=== PATIENT | male | born 1955 | race Caucasian/White ===

== ENCOUNTER 2018-06-21 14:52 | Emergency (ER) | payer MEDICARE, MEDICAID ==
[~2018-06-21] VITALS: Ht 185.4 cm; Wt 122.0 kg
[2018-06-21 16:11] LABS: BASOPHILS # (AUTO) 0.1 X10'3 (0-0.2); BASOPHILS % (AUTO) 0.8 % (0-1); EOSINOPHILS # (AUTO) 0.1 X10'3 (0-0.9); HEMATOCRIT 39.5 % (42.0-52.0); HEMOGLOBIN 12.6 g/dl (14.0-17.9); LYMPHOCYTES % (AUTO) 14.5 % (21-51); MEAN CORPUSCULAR HEMOGLOBIN 26.8 PG (27.0-31.0); MEAN CORPUSCULAR HGB CONC 31.9 g/dL (33.0-36.5); MEAN CORPUSCULAR VOLUME 83.9 FL (78-98); MEAN PLATELET VOLUME 7.4 FL (7.4-10.4); MONOCYTES # (AUTO) 0.6 X10'3 (0-0.9); MONOCYTES % (AUTO) 8.4 % (2-12); NEUTROPHILS # (AUTO) 5.1 X10'3 (1.8-7.7); NEUTROPHILS % (AUTO) 74.3 % (42-75); PLATELET COUNT 208 X10'3 (140-440); RED BLOOD COUNT 4.71 X10'6 (4.70-6.10); RED CELL DISTRIBUTION WIDTH 16.3 % (11.5-14.5); WHITE BLOOD COUNT 6.9 X10'3 (4.5-11.0)
[2018-06-21 16:25] LABS: ALANINE AMINOTRANSFERASE 35 U/L (12-78); ALBUMIN 2.9 G/DL (3.4-5.0); ALBUMIN/GLOBULIN RATIO 0.9 (1.1-1.5); ALKALINE PHOSPHATASE 89 IU/L (46-116); ANION GAP 3 (8-16); ASPARTATE AMINO TRANSFERASE 32 U/L (10-37); BILIRUBIN,TOTAL 0.3 MG/DL (0.1-1.0); BLOOD UREA NITROGEN 14 MG/DL (7-18); BUN/CREATININE RATIO 15.2 (5.4-32.0); CALCIUM 8.9 MG/DL (8.5-10.1); CHLORIDE 104 MMOL/L (99-107); CREATININE 0.92 MG/DL (0.60-1.10); GLUCOSE 200 MG/DL (70-104); POTASSIUM 3.8 MMOL/L (3.5-5.1); SODIUM 144 MMOL/L (135-145); TOTAL CARBON DIOXIDE 37.2 MMOL/L (24-32); TOTAL PROTEIN 6.3 G/DL (6.4-8.2); eGFR 83 ML/MIN
[2018-06-21 16:38] LABS: PARTIAL THROMBOPLASTIN TIME 23 SECONDS (22-32)
[2018-06-21] MEDS ORDERED: morphine 10mg/ml inj. IV ONE (17:25)
[2018-06-21 17:57] LABS: CLARITY,URINE CLEAR (Clear); COLOR,URINE YELLOW (Yellow); GLUCOSE, URINE NEGATIVE (Neg); KETONES,URINE NEGATIVE (Neg); LEUKOCYTE ESTERASE ,URINE NEGATIVE (Neg); NITRITES, URINE NEGATIVE (Neg); OCCULT BLOOD,URINE NEGATIVE (Neg); PH,URINE 5.5 (4.8-8.0); PROTEIN,URINE NEGATIVE (Neg); UROBILINOGEN,URINE 0.2 E.U/dL (0.2-1.0)
[2018-06-21 17:58] LABS: UA COLLECTION TYPE CLN CATCH MIDSTREAM
[2018-06-21] MEDS ORDERED: OXYC-145 PO (18:16)
[2018-06-21 18:48] VITALS: BP 157/96
== END 2018-06-21 18:51 | disposition home or self-care (01) ==
LOC: ER 14:53
DX: G89.29 Other chronic pain (principal); M54.5 Low back pain
CPT/HCPCS: 36415; 71045; 80053; 81003; 83605; 84145; 85025; 85610; 85730; 87040; 93005; 96374; 99284; J2270

== ENCOUNTER 2023-01-07 17:45 | Inpatient (IN) | payer MEDICARE, MEDICAID ==
[~2023-01-07] VITALS: Ht 185.4 cm; Wt 122.9 kg
[~2023-01-07 17:45] MED LIST: OXYC-145 PO
[2023-01-07 18:43] LABS: BASOPHILS # (AUTO) 0.1 X10'3 (0-0.2); BASOPHILS % (AUTO) 1.6 % (0-1); EOSINOPHILS # (AUTO) 0.1 X10'3 (0-0.9); EOSINOPHILS % (AUTO) 1.9 % (0-6); HEMATOCRIT 29.9 % (42.0-52.0); HEMOGLOBIN 8.4 g/dl (14.0-17.9); LYMPHOCYTES # (AUTO) 0.9 X10'3 (1.1-4.8); LYMPHOCYTES % (AUTO) 12.4 % (21-51); MEAN CORPUSCULAR HEMOGLOBIN 20.3 PG (27.0-31.0); MEAN CORPUSCULAR HGB CONC 28.1 g/dL (33.0-36.5); MEAN CORPUSCULAR VOLUME 72.1 FL (78-98); MEAN PLATELET VOLUME 8.7 FL (7.4-10.4); MONOCYTES # (AUTO) 0.8 X10'3 (0-0.9); MONOCYTES % (AUTO) 11.3 % (2-12); NEUTROPHILS # (AUTO) 5.1 X10'3 (1.8-7.7); NEUTROPHILS % (AUTO) 72.8 % (42-75); PLATELET COUNT 163 X10'3 (140-440); RED BLOOD COUNT 4.14 X10'6 (4.70-6.10); RED CELL DISTRIBUTION WIDTH 21.1 % (11.5-14.5)
[2023-01-07 19:10] LABS: ALANINE AMINOTRANSFERASE 20 U/L (12-78); ALBUMIN 3.1 G/DL (3.4-5.0); ALKALINE PHOSPHATASE 170 IU/L (46-116); ASPARTATE AMINO TRANSFERASE 31 U/L (10-37); BILIRUBIN,TOTAL 1.1 MG/DL (0.1-1.0); BLOOD UREA NITROGEN 18 MG/DL (7-18); BUN/CREATININE RATIO 15.1 (10.0-20.0); CALCIUM 8.8 MG/DL (8.5-10.1); CHLORIDE 99 MMOL/L (99-107); CREATININE 1.19 MG/DL (0.60-1.10); GLUCOSE 112 MG/DL (70-104); POTASSIUM 3.4 MMOL/L (3.5-5.1); SODIUM 145 MMOL/L (135-145); TOTAL PROTEIN 6.2 G/DL (6.4-8.2); eCRCL 69 ML/MIN; eGFR 61 ML/MIN
[2023-01-07 19:19] LABS: PRO BRAIN NATRIURETIC PEPTIDE 4140 PG/ML (0-125)
[2023-01-07 19:29] LABS: ANION GAP -4 (8-16)
[2023-01-07 19:31] LABS: TOTAL CARBON DIOXIDE > 50 MMOL/L (24-32)
--- NOTE | 2023-01-07 19:37 | NUR ---
US AT BEDSIDE
[2023-01-07] MEDS ORDERED: furosemide 10 MG/1 ML 10ml inj IV ONE (20:00)
[2023-01-07 20:20] LABS: ABG BASE EXCESS 14.2 mmol/L (-2.0-2.0); ABG OXYGEN SATURATION 95.2 % (94-97); ABG PCO2 (T) 74.7 mmHg (35.0-48.0); ABG PH (T) 7.366 (7.340-7.440); ABG PO2 (T) 80.4 mmHg (75.0-100.0); FCOHb 1.2 % (0.0-3.9); FHHb 4.7 % (0.0-5.0); FLOW 5 L/min; FMetHb 0.2 % (0.0-1.5); FO2Hb 93.9 % (94-97); MODE NASAL CANNULA; PATIENT TEMPERATURE 36.7; TOTAL HEMOGLOBIN 9.4 G/dl (14.0-17.9)
[2023-01-07] MEDS ORDERED: nitroGLYCERIN 25mg/250mL D5W 250 ML IV SCH (20:30)
[2023-01-07] MEDS ORDERED: nitroGLYCERIN-Tridil 50MG/D5W 250 ML IV SCH (20:35)
[2023-01-07 20:39] VITALS: PULSE 84; RESP 19; O2SAT 99
[2023-01-07] MEDS ORDERED: temazepam 15mg capsule PO PRN (21:00)
[2023-01-07 22:02] LABS: ABG BASE EXCESS 16.9 mmol/L (-2.0-2.0); ABG HCO3 44.6 mmol/L (22.0-26.0); ABG OXYGEN SATURATION 98.1 % (94-97); ABG PCO2 (T) 76.5 mmHg (35.0-48.0); ABG PH (T) 7.382 (7.340-7.440); ABG PO2 (T) 108.4 mmHg (75.0-100.0); FCOHb 0.9 % (0.0-3.9); FHHb 1.9 % (0.0-5.0); FMetHb 0.3 % (0.0-1.5); FO2Hb 96.9 % (94-97); PATIENT TEMPERATURE 36.7; TOTAL HEMOGLOBIN 9.2 G/dl (14.0-17.9)
[2023-01-07 23:05] LABS: ABG BASE EXCESS 14.7 mmol/L (-2.0-2.0); ABG HCO3 42.3 mmol/L (22.0-26.0); ABG PCO2 (T) 72.8 mmHg (35.0-48.0); ABG PO2 (T) 64.9 mmHg (75.0-100.0); ALLEN'S TEST Modified; FCOHb 0.9 % (0.0-3.9); FHHb 7.9 % (0.0-5.0); FMetHb 0.4 % (0.0-1.5); FO2Hb 90.8 % (94-97); PATIENT TEMPERATURE 36.6; RESPIRATORY RATE 20 b/min; TOTAL HEMOGLOBIN 9.2 G/dl (14.0-17.9)
[2023-01-07 23:09] VITALS: PULSE 85; RESP 22; O2SAT 91
[2023-01-07] MEDS ORDERED: ondansetron 4mg rapidly disintigrating tab PO PRN (23:20)
[2023-01-07] MEDS ORDERED: magnesium hydroxide 30ml (MOM) UD suspension PO PRN (23:20)
[2023-01-07] MEDS ORDERED: ipratropium/albuterol 3ml nebule NEB PRN (23:20)
[2023-01-07] MEDS ORDERED: acetaminophen 325mg tablet PO PRN ×2 (23:20)
[2023-01-07] MEDS ORDERED: HYDROcodone/acetaminophen 10/325mg tab PO PRN (23:20)
[2023-01-07] MEDS ORDERED: potassium Cl 20 mEq SR tablet PO PRN (23:20)
[2023-01-07] MEDS ORDERED: HYDROcodone/acetaminophen 5mg/325mg tablet PO PRN (23:20)
[2023-01-07] MEDS ORDERED: acetaminophen 650mg rectal suppository RC PRN (23:20)
[2023-01-07] MEDS ORDERED: morphine 2 MG/ML inj. syringe IV PRN (23:20)
[2023-01-07] MEDS ORDERED: diphenhydrAMINE 25mg capsule PO PRN (23:20)
[2023-01-07] MEDS ORDERED: ondansetron/PF 4mg/2ml inj IV PRN (23:20)
[2023-01-07] MEDS ORDERED: mag hydrox/Alum hydrox/simeth 30ml oral suspension PO PRN (23:20)
[2023-01-07] MEDS ORDERED: diphenhydrAMINE 50 mg/ml inj IV PRN (23:20)
[2023-01-07] MEDS ORDERED: potassium Cl 40MEQ/1/2NS 520ml 520 ML IV PRN (23:20)
[2023-01-07] MEDS ORDERED: bisacodyl 10mg suppository rectal RC PRN (23:20)
[2023-01-07 23:54] LABS: CREATINE KINASE 73 U/L (39-308); LIPASE 39 U/L (16-77); MAGNESIUM 1.7 MG/DL (1.5-2.4); PHOSPHORUS 3.5 MG/DL (2.3-4.5)
[2023-01-08] VITALS (7 sets, daily range): PULSE 85–106; RESP 15–22; O2SAT 91–100
[2023-01-08 00:04] LABS: OSMOLALITY 304 MOSM/K (280-300)
[2023-01-08] MEDS: heparin, porcine 5000 units/ml vial SQ SCH ×3 (00:11→16:46)
[2023-01-08 00:20] LABS: APTT 24 SECONDS (22-32); D-DIMER 0.43 MG/L FEU (0-0.50); INR 1.1 INR; PROTHROMBIN TIME 11.8 SECONDS (9.0-12.0)
[2023-01-08 00:38] LABS: BILIRUBIN,URINE NEGATIVE (Neg); CLARITY,URINE CLEAR (Clear); COLOR,URINE STRAW (Yellow); GLUCOSE, URINE NEGATIVE (Neg); KETONES,URINE NEGATIVE (Neg); LEUKOCYTE ESTERASE ,URINE NEGATIVE (Neg); NITRITES, URINE NEGATIVE (Neg); OCCULT BLOOD,URINE TRACE-INTACT (Neg); PH,URINE 6.5 (4.8-8.0); PROTEIN,URINE NEGATIVE (Neg)
[2023-01-08 00:45] LABS: UA COLLECTION TYPE FOLEY CATH
[2023-01-08 00:46] LABS: BACTERIA,URINE FEW /HPF (Neg); HYALINE CASTS 0-3 /LPF (NEGATIVE); MUCUS STRANDS FEW /LPF (Neg); RBC,URINE 0-2 /HPF (0-2); SQUAMOUS EPITHELIAL CELL,UR NONE SEEN /LPF (FEW); WBC,URINE 0-4 /HPF (0-4)
[2023-01-08 01:12] LABS: URINE AMPHETAMINE SCREEN POSITIVE (Neg); URINE BARBITUATE SCREEN NEGATIVE (Neg); URINE BENZODIAZEPINES SCREEN NEGATIVE (Neg); URINE CANNABINOID SCREEN NEGATIVE (Neg); URINE COCAINE SCREEN NEGATIVE (Neg); URINE METHADONE SCREEN NEGATIVE (Neg); URINE OPIATE SCREEN NEGATIVE (Neg); URINE PHENCYCLIDINE SCREEN NEGATIVE (Neg)
[2023-01-08 03:48] LABS: BASOPHILS # (AUTO) 0.1 X10'3 (0-0.2); BASOPHILS % (AUTO) 1.2 % (0-1); EOSINOPHILS # (AUTO) 0.2 X10'3 (0-0.9); EOSINOPHILS % (AUTO) 2.2 % (0-6); HEMATOCRIT 27.8 % (42.0-52.0); HEMOGLOBIN 7.9 g/dl (14.0-17.9); LYMPHOCYTES # (AUTO) 1.2 X10'3 (1.1-4.8); LYMPHOCYTES % (AUTO) 17.6 % (21-51); MEAN CORPUSCULAR HEMOGLOBIN 20.4 PG (27.0-31.0); MEAN CORPUSCULAR HGB CONC 28.4 g/dL (33.0-36.5); MEAN PLATELET VOLUME 9.2 FL (7.4-10.4); MONOCYTES # (AUTO) 0.8 X10'3 (0-0.9); MONOCYTES % (AUTO) 11.7 % (2-12); NEUTROPHILS # (AUTO) 4.7 X10'3 (1.8-7.7); NEUTROPHILS % (AUTO) 67.3 % (42-75); PLATELET COUNT 147 X10'3 (140-440); RED BLOOD COUNT 3.86 X10'6 (4.70-6.10); RED CELL DISTRIBUTION WIDTH 21.8 % (11.5-14.5); WHITE BLOOD COUNT 6.9 X10'3 (4.5-11.0)
[2023-01-08 04:04] LABS: ALANINE AMINOTRANSFERASE 17 U/L (12-78); ALBUMIN 2.9 G/DL (3.4-5.0); ALBUMIN/GLOBULIN RATIO 1.1 (1.1-1.5); ALKALINE PHOSPHATASE 155 IU/L (46-116); ASPARTATE AMINO TRANSFERASE 30 U/L (10-37); BILIRUBIN,TOTAL 1.1 MG/DL (0.1-1.0); BLOOD UREA NITROGEN 19 MG/DL (7-18); BUN/CREATININE RATIO 17.8 (10.0-20.0); CALCIUM 8.6 MG/DL (8.5-10.1); CHLORIDE 98 MMOL/L (99-107); CHOL/HDL RATIO 2.5 (0.00-4.99); CHOLESTEROL 133 MG/DL (0-200); CREATININE 1.07 MG/DL (0.60-1.10); GLUCOSE 75 MG/DL (70-104); HDL CHOLESTEROL 53 MG/DL (35-60); LDL CHOLESTEROL 72 MG/DL (50-100); MAGNESIUM 1.7 MG/DL (1.5-2.4); SODIUM 145 MMOL/L (135-145); THYROID STIMULATING HORMONE 1.44 ulU/ml (0.34-4.50); TOTAL PROTEIN 5.6 G/DL (6.4-8.2); TRIGLYCERIDES 62 MG/DL (20-135); eCRCL 77 ML/MIN; eGFR 69 ML/MIN
[2023-01-08 04:15] LABS: POTASSIUM 2.7 MMOL/L (3.5-5.1)
[2023-01-08 04:20] LABS: ANION GAP 0 (8-16); TOTAL CARBON DIOXIDE 47.3 MMOL/L (24-32)
--- NOTE | 2023-01-08 04:20 | NUR ---
requested 40meq K in 520mL bag from pharmacy, will hang when recieved.
[2023-01-08] MEDS ORDERED: AMI200T PO (04:59)
[2023-01-08] MEDS ORDERED: METO-411 PO (04:59)
[2023-01-08] MEDS ORDERED: FURO40TA4 PO (04:59)
[2023-01-08] MEDS ORDERED: ALBU17AE26 IH (04:59)
--- NOTE | 2023-01-08 04:59 | NUR ---
potassium and nitro compatible y-site confirmed with pharmacist. awaiting potassium still, pharmacist making it
[2023-01-08] MEDS: furosemide 20 MG/2 ML vial IV SCH ×2 (08:00→21:40)
[2023-01-08] MEDS ORDERED: docusate sod 100mg capsule PO SCH (08:00)
[2023-01-08 08:18] LABS: PRO BRAIN NATRIURETIC PEPTIDE 3242 PG/ML (0-125)
[2023-01-08] MEDS: pantoprazole 40mg Tablet.DR PO SCH (09:50)
[2023-01-08] MEDS: lisinopril 10 MG tablet PO SCH (09:50)
[2023-01-08] MEDS: atorvastatin 20mg tablet PO SCH (09:50)
[2023-01-08] MEDS: spironolactone 25 MG tablet PO SCH (09:53)
--- NOTE | 2023-01-08 15:46 | NUR ---
notified of increased HR. PT HR [phone]
[2023-01-08] MEDS ORDERED: diltiazem-NS 100mg/100ml 100 ML IV SCH (15:55)
[2023-01-08] MEDS ORDERED: LORazepam 2 mg/ml vial IV PRN (18:00)
[2023-01-08] MEDS ORDERED: LORazepam 1 MG tablet PO PRN (18:00)
[2023-01-08] MEDS ORDERED: haloperidol 5mg tablet PO PRN (18:00)
[2023-01-08] MEDS: potassium Cl 20 mEq SR tablet PO PRN (23:24)
[2023-01-09] MEDS: heparin, porcine 5000 units/ml vial SQ SCH (00:37)
--- NOTE | 2023-01-09 00:59 | NUR ---
I agree with MATERIAL CLERK general assessment
[2023-01-09 02:41] LABS: BASOPHILS # (AUTO) 0.1 X10'3 (0-0.2); EOSINOPHILS # (AUTO) 0.2 X10'3 (0-0.9); EOSINOPHILS % (AUTO) 2.3 % (0-6); HEMATOCRIT 26.9 % (42.0-52.0); LYMPHOCYTES # (AUTO) 0.9 X10'3 (1.1-4.8); LYMPHOCYTES % (AUTO) 11.6 % (21-51); MEAN PLATELET VOLUME 8.6 FL (7.4-10.4); MONOCYTES # (AUTO) 0.8 X10'3 (0-0.9); MONOCYTES % (AUTO) 10.8 % (2-12); NEUTROPHILS # (AUTO) 5.8 X10'3 (1.8-7.7); NEUTROPHILS % (AUTO) 74.3 % (42-75); PLATELET COUNT 164 X10'3 (140-440); WHITE BLOOD COUNT 7.8 X10'3 (4.5-11.0)
[2023-01-09 02:46] VITALS: PULSE 114; RESP 18; O2SAT 95
[2023-01-09 02:48] LABS: INR 1.1 INR; PROTHROMBIN TIME 11.9 SECONDS (9.0-12.0)
[2023-01-09 02:53] LABS: ALANINE AMINOTRANSFERASE 18 U/L (12-78); ALBUMIN 2.8 G/DL (3.4-5.0); ALKALINE PHOSPHATASE 150 IU/L (46-116); ASPARTATE AMINO TRANSFERASE 28 U/L (10-37); BILIRUBIN,TOTAL 1.1 MG/DL (0.1-1.0); BLOOD UREA NITROGEN 24 MG/DL (7-18); BUN/CREATININE RATIO 23.1 (10.0-20.0); CALCIUM 8.4 MG/DL (8.5-10.1); CHLORIDE 97 MMOL/L (99-107); CREATININE 1.04 MG/DL (0.60-1.10); GLUCOSE 129 MG/DL (70-104); MAGNESIUM 1.6 MG/DL (1.5-2.4); PHOSPHORUS 3.6 MG/DL (2.3-4.5); POTASSIUM 3.3 MMOL/L (3.5-5.1); SODIUM 144 MMOL/L (135-145); TOTAL PROTEIN 5.7 G/DL (6.4-8.2); eCRCL 79 ML/MIN; eGFR 71 ML/MIN
[2023-01-09 03:03] LABS: MEAN CORPUSCULAR HEMOGLOBIN 20.8 PG (27.0-31.0); MEAN CORPUSCULAR VOLUME 69.9 FL (78-98); RED BLOOD COUNT 3.84 X10'6 (4.70-6.10)
[2023-01-09 03:04] LABS: MEAN CORPUSCULAR HGB CONC 29.7 g/dL (33.0-36.5); RED CELL DISTRIBUTION WIDTH 20.7 % (11.5-14.5)
[2023-01-09 03:07] LABS: ANION GAP 0 (8-16)
[2023-01-09 03:11] LABS: TOTAL CARBON DIOXIDE 47.3 MMOL/L (24-32)
[2023-01-09] MEDS: potassium Cl 20 mEq SR tablet PO PRN (03:53)
--- NOTE | 2023-01-09 03:58 | NUR ---
AWARE OF CO2 NO NEW ORDERS
--- NOTE | 2023-01-09 06:37 | NUR ---
pt refused to turn and reposition this shift. offered to turn and reposition every 2 hours and as needed. pt educated and cont to refuse.
--- NOTE | 2023-01-09 06:41 | NUR ---
RECEIVED REPORT FROM GUILLERMINA KENNEDY ASSUMING CARE OF PT RESTING QUIETLY RESPS EVEN AND UNLABORED MONITOR LEADS ON AND FUNCTIONING
[2023-01-09] MEDS ORDERED: metoprolol tartrate 1mg/ml inj IV ONE (08:25)
[2023-01-09] MEDS: lisinopril 10 MG tablet PO SCH (09:19)
[2023-01-09] MEDS: pantoprazole 40mg Tablet.DR PO SCH (09:20)
[2023-01-09] MEDS: spironolactone 25 MG tablet PO SCH (09:20)
[2023-01-09] MEDS: atorvastatin 20mg tablet PO SCH (09:20)
[2023-01-09 09:24] VITALS: PULSE 111; RESP 22; O2SAT 100
--- NOTE | 2023-01-09 09:27 | NUR ---
floating [id number] oral meds given
[2023-01-09] MEDS: furosemide 20 MG/2 ML vial IV SCH ×2 (09:55→20:42)
--- NOTE | 2023-01-09 11:32 | NUR ---
dr Morse notified of pt's hr upper 90's to low 100's dilt gtt on hold until new orders intered
[2023-01-09] MEDS ORDERED: pneumococcal 23-VAL P-sac vacc 25 mcg/0.5ml vial IMVAC ONE (11:35)
--- NOTE | 2023-01-09 12:01 | NUR ---
CLARIFICATION ON DILT GTT DC PER DR VIGIL PT STARTING ON PO MEDS
[2023-01-09 12:36] VITALS: PULSE 122; RESP 20; O2SAT 95
[2023-01-09] MEDS: diltiazem 30mg tablet PO SCH ×2 (14:46→20:43)
--- NOTE | 2023-01-09 17:47 | NUR ---
attempted to give report to [facility] noc charge tay rn refused report " that pt is not going to a day shift nurse you will have to call back after change of shift" primer charger notified
--- NOTE | 2023-01-09 19:30 | NUR ---
Pt is A+Ox4, arrived on the unit at 1920 on a hospital bed from the ED. Pt has NC in place at 6L saturation of 100%. Pt has a 20G in the RAC that is SL. Temp rios in place and patent draining to gravity. BSC in room so pt can transfer from bed to commode. Pt diet is HH with a 2gm Na restriction. Pt is pleasant and denies any pain/discomfort.
[2023-01-09 19:55] VITALS: BP 139/73; PULSE 128; RESP 28; TEMP 98.8; O2SAT 100
[2023-01-09] MEDS ORDERED: metoprolol tartrate 25mg tablet PO SCH (20:00)
[2023-01-09 20:12] VITALS: PULSE 113; RESP 16; O2SAT 96
[2023-01-09] MEDS: apixaban 5mg tablet PO SCH (20:43)
[2023-01-09 22:00] VITALS: BP 105/56; PULSE 108; RESP 27; TEMP 98.1; O2SAT 98
[2023-01-10] VITALS (11 sets, daily range): BP systolic 95–131; BP diastolic 47–68; PULSE 67–135; RESP 18–30; TEMP 97.8–99.3; O2SAT 88–100
[2023-01-10] MEDS: diltiazem 30mg tablet PO SCH ×4 (02:31→23:03)
--- NOTE | 2023-01-10 06:40 | NUR ---
Problems reprioritized. Patient report given, questions answered & plan of care reviewed with Aylin GARRISON. Pt stable at shift change.
[2023-01-10] MEDS: furosemide 20 MG/2 ML vial IV SCH ×2 (08:00→23:04)
[2023-01-10] MEDS: metoprolol succinate 25mg (24-HOUR) SR. Tablet PO SCH (08:00)
--- NOTE | 2023-01-10 09:14 | NUR ---
PAGER ID: [phone] MESSAGE: [id number]. Jeet Ness. Pt has Lopressor 25mg BID and Toprol XL 50mg daily. Which would you like me to give? Unless pt needs both. TY. Viera [phone]
[2023-01-10 09:15] LABS: BASOPHILS # (AUTO) 0.1 X10'3 (0-0.2); BASOPHILS % (AUTO) 0.6 % (0-1); EOSINOPHILS # (AUTO) 0.1 X10'3 (0-0.9); LYMPHOCYTES % (AUTO) 10.6 % (21-51); MEAN PLATELET VOLUME 8.3 FL (7.4-10.4); MONOCYTES # (AUTO) 1.1 X10'3 (0-0.9); MONOCYTES % (AUTO) 11.9 % (2-12); NEUTROPHILS % (AUTO) 75.9 % (42-75); PLATELET COUNT 187 X10'3 (140-440); WHITE BLOOD COUNT 9.2 X10'3 (4.5-11.0)
[2023-01-10] MEDS: apixaban 5mg tablet PO SCH ×2 (09:23→23:03)
[2023-01-10] MEDS: lisinopril 10 MG tablet PO SCH (09:23)
[2023-01-10] MEDS: spironolactone 25 MG tablet PO SCH (09:23)
[2023-01-10] MEDS: pantoprazole 40mg Tablet.DR PO SCH (09:24)
[2023-01-10] MEDS: atorvastatin 20mg tablet PO SCH (09:24)
[2023-01-10 09:26] LABS: INR 1.1 INR; PROTHROMBIN TIME 11.6 SECONDS (9.0-12.0)
[2023-01-10 09:56] LABS: RED BLOOD COUNT 3.44 X10'6 (4.70-6.10)
[2023-01-10 09:57] LABS: HEMATOCRIT 24.4 % (42.0-52.0); HEMOGLOBIN 7.5 g/dl (14.0-17.9); MEAN CORPUSCULAR HEMOGLOBIN 21.7 PG (27.0-31.0); MEAN CORPUSCULAR HGB CONC 30.6 g/dL (33.0-36.5); RED CELL DISTRIBUTION WIDTH 20.8 % (11.5-14.5)
[2023-01-10] MEDS ORDERED: digoxin 250mcg/ml 2ml ampule IV ONE ×2 (10:15)
[2023-01-10 10:23] LABS: ALANINE AMINOTRANSFERASE 13 U/L (12-78); ALBUMIN 2.8 G/DL (3.4-5.0); ALKALINE PHOSPHATASE 151 IU/L (46-116); ANION GAP 0 (8-16); ASPARTATE AMINO TRANSFERASE 23 U/L (10-37); BILIRUBIN,TOTAL 0.9 MG/DL (0.1-1.0); BLOOD UREA NITROGEN 20 MG/DL (7-18); BUN/CREATININE RATIO 18.9 (10.0-20.0); CALCIUM 8.2 MG/DL (8.5-10.1); CHLORIDE 97 MMOL/L (99-107); CREATININE 1.06 MG/DL (0.60-1.10); GLUCOSE 152 MG/DL (70-104); MAGNESIUM 1.6 MG/DL (1.5-2.4); PHOSPHORUS 3.4 MG/DL (2.3-4.5); POTASSIUM 4.1 MMOL/L (3.5-5.1); SODIUM 142 MMOL/L (135-145); TOTAL PROTEIN 5.7 G/DL (6.4-8.2); eCRCL 77 ML/MIN; eGFR 70 ML/MIN
[2023-01-10 10:29] LABS: ANISOCYTOSIS 3+; HYPOCHROMASIA 1+; MICROCYTOSIS 1+; PLATELET ESTIMATE NORMAL
[2023-01-10 10:30] LABS: LARGE PLATELETS FEW
[2023-01-10 10:35] LABS: TOTAL CARBON DIOXIDE 44.7 MMOL/L (24-32)
--- NOTE | 2023-01-10 10:49 | NUR ---
PAGER ID: [phone] MESSAGE: [id number]. Jeet Ness. Pt has critical level CO2 of 44.7. Aylin [phone]
[2023-01-10 15:31] LABS: ABG BASE EXCESS 23.4 mmol/L (-2.0-2.0); ABG HCO3 52.2 mmol/L (22.0-26.0); ABG OXYGEN SATURATION 95.6 % (94-97); ABG PCO2 (T) 96.4 mmHg (35.0-48.0); ABG PH (T) 7.353 (7.340-7.440); ABG PO2 (T) 82.3 mmHg (75.0-100.0); FCOHb 1.7 % (0.0-3.9); FHHb 4.3 % (0.0-5.0); FLOW 4 L/min; FMetHb 0.3 % (0.0-1.5); FO2Hb 93.7 % (94-97); MODE NASAL CANNULA; PATIENT TEMPERATURE 37.4; TOTAL HEMOGLOBIN 8.5 G/dl (14.0-17.9)
--- NOTE | 2023-01-10 18:23 | NUR ---
Problems reprioritized. Patient report given, questions answered & plan of care reviewed with Sneha GARRISON.
[2023-01-10] MEDS ORDERED: digoxin 250mcg/ml 2ml ampule IV SCH (20:00)
[2023-01-11] VITALS (7 sets, daily range): BP systolic 99–115; BP diastolic 49–57; PULSE 84–110; RESP 18–28; TEMP 97.7–99; O2SAT 91–98
[2023-01-11] MEDS: diltiazem 30mg tablet PO SCH ×2 (02:44→07:30)
--- NOTE | 2023-01-11 02:59 | NUR ---
pt was compliant with the BiPAP at the beginning of the shift, however since 2199 on 01/10/23 pt has become non compliant, pt was educated and offered BiPAP multiple times.
--- NOTE | 2023-01-11 06:39 | NUR ---
Patient in room PCU 3028. I have received report from BLADIMIR Hoover and had the opportunity to ask questions and assume patient care.
--- NOTE | 2023-01-11 06:39 | NUR ---
Problems reprioritized. Patient report given, questions answered & plan of care reviewed with Gen GARRISON. Pt stable at shift change.
[2023-01-11] MEDS: lisinopril 10 MG tablet PO SCH (07:37)
[2023-01-11] MEDS: atorvastatin 20mg tablet PO SCH (07:37)
[2023-01-11] MEDS: pantoprazole 40mg Tablet.DR PO SCH (07:37)
[2023-01-11] MEDS: metoprolol succinate 25mg (24-HOUR) SR. Tablet PO SCH (07:37)
[2023-01-11] MEDS: furosemide 20 MG/2 ML vial IV SCH (07:38)
[2023-01-11] MEDS: spironolactone 25 MG tablet PO SCH (07:38)
[2023-01-11] MEDS: apixaban 5mg tablet PO SCH (07:38)
[2023-01-11 07:52] LABS: BASOPHILS # (AUTO) 0.1 X10'3 (0-0.2); BASOPHILS % (AUTO) 1.2 % (0-1); EOSINOPHILS # (AUTO) 0.2 X10'3 (0-0.9); LYMPHOCYTES # (AUTO) 0.9 X10'3 (1.1-4.8); LYMPHOCYTES % (AUTO) 10.8 % (21-51); MEAN PLATELET VOLUME 8.5 FL (7.4-10.4); MONOCYTES # (AUTO) 1.1 X10'3 (0-0.9); NEUTROPHILS # (AUTO) 5.9 X10'3 (1.8-7.7); PLATELET COUNT 182 X10'3 (140-440); WHITE BLOOD COUNT 8.2 X10'3 (4.5-11.0)
[2023-01-11 07:59] LABS: INR 1.1 INR; PROTHROMBIN TIME 11.4 SECONDS (9.0-12.0)
[2023-01-11] MEDS ORDERED: diltiazem CD 120mg capsule (once-daily) PO SCH (08:00)
[2023-01-11] MEDS ORDERED: amiodarone 200mg tablet PO SCH (08:00)
[2023-01-11 08:12] LABS: ALANINE AMINOTRANSFERASE 14 U/L (12-78); ALBUMIN 2.8 G/DL (3.4-5.0); ALKALINE PHOSPHATASE 149 IU/L (46-116); ASPARTATE AMINO TRANSFERASE 26 U/L (10-37); BILIRUBIN,TOTAL 0.9 MG/DL (0.1-1.0); BLOOD UREA NITROGEN 21 MG/DL (7-18); BUN/CREATININE RATIO 22.8 (10.0-20.0); CALCIUM 8.5 MG/DL (8.5-10.1); CHLORIDE 97 MMOL/L (99-107); CREATININE 0.92 MG/DL (0.60-1.10); GLUCOSE 127 MG/DL (70-104); MAGNESIUM 1.7 MG/DL (1.5-2.4); PHOSPHORUS 3.2 MG/DL (2.3-4.5); POTASSIUM 4.2 MMOL/L (3.5-5.1); SODIUM 141 MMOL/L (135-145); TOTAL PROTEIN 5.7 G/DL (6.4-8.2); eCRCL 89 ML/MIN; eGFR 82 ML/MIN
[2023-01-11 08:16] LABS: HEMATOCRIT 24.7 % (42.0-52.0); HEMOGLOBIN 7.5 g/dl (14.0-17.9); MEAN CORPUSCULAR HEMOGLOBIN 21.4 PG (27.0-31.0); MEAN CORPUSCULAR HGB CONC 30.3 g/dL (33.0-36.5); MEAN CORPUSCULAR VOLUME 70.6 FL (78-98); RED CELL DISTRIBUTION WIDTH 20.4 % (11.5-14.5)
[2023-01-11 08:48] LABS: ANISOCYTOSIS 3+; HYPOCHROMASIA 1+; MICROCYTOSIS 1+; PLATELET ESTIMATE NORMAL
[2023-01-11 08:49] LABS: SPHEROCYTES 1+
[2023-01-11 09:41] LABS: ANION GAP -3 (8-16)
--- NOTE | 2023-01-11 09:56 | NUR ---
PAGER ID: [phone] MESSAGE: [id number]- Valerio Ness- CO2 47.0. Was 44..7, 47.3 - [place] [phone]
[2023-01-11 10:33] LABS: ABG BASE EXCESS 20.6 mmol/L (-2.0-2.0); ABG HCO3 48.9 mmol/L (22.0-26.0); ABG OXYGEN SATURATION 93.7 % (94-97); ABG PCO2 (T) 85.6 mmHg (35.0-48.0); ABG PH (T) 7.372 (7.340-7.440); ABG PO2 (T) 67.7 mmHg (75.0-100.0); FCOHb 1.8 % (0.0-3.9); FHHb 6.2 % (0.0-5.0); FLOW 3 L/min; FMetHb 0.3 % (0.0-1.5); FO2Hb 91.7 % (94-97); MODE NASAL CANNULA; PATIENT TEMPERATURE 36.5; TOTAL HEMOGLOBIN 8.5 G/dl (14.0-17.9)
[2023-01-11] MEDS ORDERED: POTA-207 PO (10:53)
[2023-01-11] MEDS ORDERED: APIX5TAB3 PO (10:53)
[2023-01-11] MEDS ORDERED: DILT240C90 PO (10:53)
[2023-01-11] MEDS ORDERED: FURO40TA4 PO (10:53)
--- NOTE | 2023-01-11 11:48 | NUR ---
Patient tolerated well dc of rios. Awaiting patient ability to void on own prior to dc per Dr. Rao.
--- NOTE | 2023-01-11 12:10 | NUR ---
patient reports has portable oxygen tank last seen in ER. called to ER. ER staff states if found will bring up. Will notify CM.
--- NOTE | 2023-01-11 12:15 | NUR ---
UZMA Gaminga notified. Lost and found called and states not there.
--- NOTE | 2023-01-11 14:43 | NUR ---
Patient able to void 100ml. Patient states feels like bladder emptied and ready for dc. Denies bladder pain or discomfort. Patient alert and oriented in no apparent acute distress. Discussed with patient discharge instructions and new prescriptions. Patient verbalized understanding of teachings. Patient received x2 portable O2 tanks from [employer]. Patient dc;'d with all personal belongings including the portable O2 tanks. Patient escorted out in wheelchair accompanied by x1 staff. Patient in lobby waiting for patient for transport home.
[2023-01-13] MEDS ORDERED: thiamine 100mg tablet PO SCH (08:00)
[2023-01-13] MEDS ORDERED: folic acid 1mg tablet PO SCH (08:00)
== END 2023-01-11 14:49 | disposition home or self-care (01) | DRG 640 ==
LOC: ER 17:46 → ED HOLD 23:28 → UNDOADMIN 23:28 → ED HOLD 01-08 00:37 → EDBEDREQSVC 01-09 16:55 → PCU 3S 01-09 19:15
PROVIDERS: ADMIT Family Medicine; ATTEND Internal Medicine
PROC: 5A09357 Assistance with Respiratory Ventilation, Less than 24 Consecutive Hours, Continuous Positive Airway Pressure (ICD-10-PCS; principal; 2023-01-07)
PROC: 5A09357 Assistance with Respiratory Ventilation, Less than 24 Consecutive Hours, Continuous Positive Airway Pressure (ICD-10-PCS; 2023-01-10)
DX: E87.6 Hypokalemia (principal); I50.33 Acute on chronic diastolic (congestive) heart failure; J96.21 Acute and chronic respiratory failure with hypoxia; J96.22 Acute and chronic respiratory failure with hypercapnia; I48.92 Unspecified atrial flutter; N17.9 Acute kidney failure, unspecified; E87.29 Other acidosis; J44.9 Chronic obstructive pulmonary disease, unspecified; N18.9 Chronic kidney disease, unspecified; E78.5 Hyperlipidemia, unspecified; E87.8 Other disorders of electrolyte and fluid balance, not elsewhere classified; D50.9 Iron deficiency anemia, unspecified; I87.2 Venous insufficiency (chronic) (peripheral); F15.10 Other stimulant abuse, uncomplicated; I48.91 Unspecified atrial fibrillation; G89.4 Chronic pain syndrome; Z87.891 Personal history of nicotine dependence; Z79.891 Long term (current) use of opiate analgesic; Z99.81 Dependence on supplemental oxygen
CPT/HCPCS: 36415; 36600; 71045; 76870; 80053; 80061; 80305; 81001; 82550; 82803; 83036; 83605; 83690; 83735; 83880; 83930; 84100; 84132; 84443; 84484; 85008; 85018; 85025; 85379; 85610; 85730; 87040; 90732; 93306; 93976; 94660; 94760; 97110; 97161; 97530; 99285; A4615; A5200; C1758; G0378; J1160; J1644; J1940; J3480; J3490